=== PATIENT | female | born 1985 | race Caucasian/White ===

== ENCOUNTER → 2018-01-01 16:35 | Outpatient (CLI) | payer OTHER, SELFPAY ==
[2018-01-05 15:42] LABS: HPV Reflexed? NOT INDICATED
== END ==
PROVIDERS: Visit Provider Obstetrics & Gynecology
DX: Z12.4 Encounter for screening for malignant neoplasm of cervix (principal)
CPT/HCPCS: 88175; G0145

== ENCOUNTER → 2018-11-14 09:48 | Outpatient (CLI) | payer OTHER, SELFPAY ==
[2016-01-18 08:25] VITALS: BMI 22.4
[2018-11-14 10:53] LABS: Hemoglobin A1c 5.5 % (4.2-6.3)
[2018-11-14 11:17] LABS: Progesterone Level 0.72 ng/mL (See Comment)
[2018-11-14 11:26] LABS: Free T3 2.9 pg/mL (2.18-3.98); T4 Free Direct 0.82 ng/dL (0.76-1.46); Thyroid Stim Hormone (TSH) 1.43 uIU/mL (0.358-3.74)
[2018-11-14 22:44] LABS: Estradiol 530.9 pg/mL
== END ==
PROVIDERS: Visit Provider Obstetrics & Gynecology
DX: N92.6 Irregular menstruation, unspecified (principal)
CPT/HCPCS: 36415; 82670; 83036; 84144; 84403; 84439; 84443; 84481

== ENCOUNTER → 2018-12-06 13:26 | Outpatient (CLI) | payer OTHER, SELFPAY ==
--- NOTE | 2018-12-06 13:31 | US_ITS ---
STUDY: ULTRASOUND TRANSVAGINAL CLINICAL: Female, 33 years old. Prolonged menses. TECHNIQUE: Transabdominal and Transvaginal COMPARISON: None. FINDINGS: Normal uterine size measuring 8.1 x 5.5 x 4.5 cm in maximal craniocaudal dimension. There are no myometrial masses. Uterus is retroverted. Normal endometrial thickness measuring 6 mm. Endometrial echoes are hyperechoic. There are no endometrial masses, and there is no fluid in the endometrial cavity. Normal uterine cervix. Normal right ovary, measuring 3.2 x 2.8 x 1.8 cm. There are multiple follicles without a dominant cyst. Normal left ovary, measuring 3.0 x 2.9 x 2.1 cm. There are multiple follicles without a dominant cyst. There is no free fluid in the pelvis. Polycystic ovary disease: No. US/Pelvic (Non ) IMPRESSION: Within normal limits. Electronically Signed: Betito Romero MD at 23:14 EST , Service support ,
--- NOTE | 2018-12-06 13:55 | US_ITS ---
STUDY: ULTRASOUND TRANSVAGINAL CLINICAL: Female, 33 years old. Prolonged menses. TECHNIQUE: Transabdominal and Transvaginal COMPARISON: None. FINDINGS: Normal uterine size measuring 8.1 x 5.5 x 4.5 cm in maximal craniocaudal dimension. There are no myometrial masses. Uterus is retroverted. Normal endometrial thickness measuring 6 mm. Endometrial echoes are hyperechoic. There are no endometrial masses, and there is no fluid in the endometrial cavity. Normal uterine cervix. Normal right ovary, measuring 3.2 x 2.8 x 1.8 cm. There are multiple follicles without a dominant cyst. Normal left ovary, measuring 3.0 x 2.9 x 2.1 cm. There are multiple follicles without a dominant cyst. There is no free fluid in the pelvis. Polycystic ovary disease: No. US/Transvaginal Non- IMPRESSION: Within normal limits. Electronically Signed: Betito Romero MD at 23:14 EST , Service support ,
== END ==
PROVIDERS: Family Provider Family Medicine; PCP Family Medicine; Referring Provider Obstetrics & Gynecology; Visit Provider Obstetrics & Gynecology
DX: N92.6 Irregular menstruation, unspecified (principal); N94.3 Premenstrual tension syndrome
CPT/HCPCS: 76830; 76856; 93976

== ENCOUNTER → 2019-02-27 10:55 | Outpatient (CLI) | payer OTHER, SELFPAY ==
[2019-03-01 13:32] LABS: HPV Reflexed? NOT INDICATED
== END ==
PROVIDERS: Visit Provider Obstetrics & Gynecology
DX: Z12.4 Encounter for screening for malignant neoplasm of cervix (principal)
CPT/HCPCS: 88175; G0145

== ENCOUNTER → 2019-03-27 09:41 | Outpatient (CLI) | payer OTHER, SELFPAY ==
[2019-03-27 13:31] LABS: Estradiol 282.7 pg/mL
[2019-03-27 13:37] LABS: Progesterone Level 5.79 ng/mL (See Comment)
== END ==
PROVIDERS: Visit Provider Obstetrics & Gynecology
DX: E28.0 Estrogen excess (principal)
CPT/HCPCS: 36415; 82670; 84144

== ENCOUNTER → 2019-06-15 09:48 | Outpatient (CLI) | payer OTHER, SELFPAY ==
[2019-06-15 11:08] LABS: Cholesterol 242 mg/dL (200); Estradiol 91.6 pg/mL; Follicle Stimulating Hormone 3.1 mIU/mL; Glucose 83 mg/dL (74-106); Hemoglobin A1c 5.4 % (4.2-6.3); High Density Lipoprotein 85 mg/dL; Triglycerides 63 mg/dL; Very Low Density Lipoprotein 13 mg/dL (5-40)
[2019-06-16 07:07] LABS: DHEA Sulfate 260.4 ug/dL (57.3-279.2)
[2019-06-16 07:44] LABS: Sex Hormone-binding Globulin 133.4 nmol/L (24.6-122.0)
[2019-06-17 10:59] LABS: Insulin 3.1 mU/L (2.6-37.6); Progesterone Level 2.47 ng/mL (See Comment); Vitamin D,25 Hydroxy 22.5 ng/mL (29.95-100.01)
== END ==
PROVIDERS: Family Provider Family Medicine; PCP Family Medicine; Referring Provider Obstetrics & Gynecology; Visit Provider Obstetrics & Gynecology
DX: N92.6 Irregular menstruation, unspecified (principal)
CPT/HCPCS: 36415; 80061; 82306; 82533; 82627; 82670; 82947; 83001; 83036; 83525; 84144; 84146; 84270; 84403; 82626

== ENCOUNTER → 2019-09-24 10:38 | Outpatient (CLI) | payer OTHER, SELFPAY ==
[2019-09-24 14:19] LABS: Vitamin D,25 Hydroxy 54.2 ng/mL (29.95-100.01)
== END ==
PROVIDERS: Family Provider Family Medicine; PCP Family Medicine; Referring Provider Obstetrics & Gynecology; Visit Provider Obstetrics & Gynecology
DX: E55.9 Vitamin D deficiency, unspecified (principal)
CPT/HCPCS: 82306

== ENCOUNTER → 2019-12-09 10:18 | Outpatient (CLI) | payer OTHER, SELFPAY ==
[2019-12-09 11:18] LABS: Progesterone Level 9.51 ng/mL (See Comment)
[2019-12-09 11:19] LABS: Estradiol 163.2 pg/mL
[2019-12-11 13:55] LABS: DHEA Sulfate 187.5 ug/dL (57.3-279.2)
== END ==
PROVIDERS: Visit Provider Obstetrics & Gynecology
DX: E28.0 Estrogen excess (principal); N93.8 Other specified abnormal uterine and vaginal bleeding
CPT/HCPCS: 36415; 82533; 82627; 82670; 84144; 84403; 82626

== ENCOUNTER → 2020-05-29 | Outpatient (CLI) | payer OTHER, SELFPAY ==
[2016-01-18 08:25] VITALS: BMI 22.4
[2020-06-04 15:32] LABS: HPV APTIMA, High Risk Negative (Negative)
== END | disposition home or self-care (01) ==
LOC: LABSPEC 15:58
PROVIDERS: Visit Provider Obstetrics & Gynecology
DX: Z12.4 Encounter for screening for malignant neoplasm of cervix (principal)
CPT/HCPCS: 87624; 88175; G0145

== ENCOUNTER → 2023-11-30 | Outpatient (CLI) | payer OTHER, SELFPAY ==
--- OUTSIDE RECORDS SUMMARY | 2023-11-30 16:55 | XMS RPT_ITS | CCD ---
Author Name Unknown Address [address] [place] [address] Organization [facility] Care Team Providers Care Steam Blocker Name Role Phone Ángel Euceda Unavailable [phone] Medications Completed/Discontinued Medications Medication Drug Class(es) Dates Sig (Normalized) Sig (Original) benzonatate 200 mg oral capsule (1 source) Non-narcotic Antitussive Start: 08-07-2017 BENZONATATE 200 MG CAPS 1 capsule 3 times a day as needed for cough BENZONATATE [id number] Ángel HERNANDEZ Problems Problem Classification Problem Date Documented Da te Episodic/Chronic Other upper respiratory infections (1 source) Upper respiratory infection; Translations: [Acute upper respiratory infection, unspecified] Onset: 08-07-2017 08-07-2017 Episodic Results Test Name Value Interpretation Reference Range Facil ity Vital Signs Date Time Vital Sign Value Performing Clinician Yuri badillo 08-07-2017 10:52-0400 BMI (Body Mass Index) 19.89 kg/m2 Ángel HERNANDEZ [facility] Work Phone: 08-07-2017 10:52-0400 Body Temperature 98.4 [degF] Ángel HERNANDEZ [facility] Work Phone: 08-07-2017 10:52-0400 BP Diastolic 66 mm[Hg] Ángel HERNANDEZ [facility] Work Phone: 08-07-2017 10:52-0400 BP Systolic 92 mm[Hg] Ángel HERNANDEZ [facility] Work Phone: 08-07-2017 10:52-0400 Height 164.47 cm Ángel HERNANDEZ [facility] Work Phone: 08-07-2017 10:52-0400 Pulse (Heart Rate) 95 /min Ángel Saleem DAVID [facility] Work Phone: 08-07-2017 10:52-0400 Respiratory Rate 14 /min Ángel Stiven HERNANDEZ [facility] Work Phone: 08-07-2017 [id number] Weight 53.8 kg Ángel Sitven HERNANDEZ [facility] Work Phone: Plan of Treatment Date Care Activity Detail Author Start: 08-07-2017 End: 08-07-2017 Appointment Appointment [facility] Work Phone: Additional Source Comments FOR RECORDS PERTAINING TO PATIENTS WHO ARE OR HAVE BEEN ENROLLED IN A CHEMICAL DEPENDENCY/SUBSTANCEABUSE PROGRAM, SOME INFORMATION MAY BE OMITTED. This clinical summary was aggregated from multiple sources. Caution should be exercised in using it in the provision of clinical care. This summary normalizes information from multiple sources, and as a consequence, information in this document may materially change the coding, format and clinical context of patient data. In addition, data may be omitted in some cases. CLINICAL DECISIONS SHOULD BE BASED ON THE PRIMARY CLINICAL RECORDS. [facility] [employer] [facility]. provides no warranty or guarantee of the accuracy or completeness of information in this document.
[2023-12-06 04:08] LABS: HPV APTIMA, High Risk Negative (Negative)
== END | disposition home or self-care (01) ==
LOC: LABSPEC 16:47
PROVIDERS: PCP Family Medicine; Referring Provider Advanced Practice Midwife; Visit Provider Advanced Practice Midwife
DX: Z12.4 Encounter for screening for malignant neoplasm of cervix (principal)
CPT/HCPCS: 87624; 88175; G0145

== ENCOUNTER → 2023-12-07 | Outpatient (CLI) | payer OTHER, SELFPAY ==
[2023-12-07 10:22] LABS: Absolute Lymphocyte Count 1.85 X10^3/uL (0.83-4.51); Absolute Neutrophil Count 6.1 X10^3/uL (2.0-7.7); Basophil# 0.04 X10^3/uL; Basophil% 0.5 % (0-1); Eosinophils% 1.2 % (0-5); Hematocrit 36.5 % (37-47); Hemoglobin 11.7 g/dL (12.0-15.0); Lymphocyte # 1.85 X10^3/ul (0.83-4.51); Lymphocyte % 21.5 % (19-41); Mean Corp Hgb Conc 32.1 g/dL (32-36); Mean Corpuscular Volume 90.3 fL (81-99); Mean Platelet Vol. 9.9 fl (6.2-12.0); Monocyte# 0.53 X10^3/uL; Monocyte% 6.2 % (0-10); NRBC Flagged by Analyzer 0 % (0-5); Neutrophil # 6.08 X10^3/uL (2.7-7.7); Neutrophil % 70.5 % (47-70); Platelet Count 267 K/mm3 (150-450); RBC Distribution Width CV 12.2 % (11.6-14.6); RBC Distribution Width SD 40.2 fl (35.1-43.9); Red Blood Count 4.04 M/mm3 (4.2-5.4); White Blood Count 8.6 K/mm3 (4.4-11.0)
[2023-12-07 10:54] LABS: Hemoglobin A1c 5.2 % (3.8-5.6)
--- OUTSIDE RECORDS SUMMARY | 2023-12-07 12:00 | XMS RPT_ITS | CCD ---
Author Name Unknown Address [address] [place] [address] Organization [facility] Care Team Providers Care Laboratory Manager Name Role Phone Ángel Euceda Unavailable [phone] Medications Completed/Discontinued Medications Medication Drug Class(es) Dates Sig (Normalized) Sig (Original) benzonatate 200 mg oral capsule (1 source) Non-narcotic Antitussive Start: 08-07-2017 BENZONATATE 200 MG CAPS 1 capsule 3 times a day as needed for cough BENZONATATE [id number] Ángel HERNANDEZ Problems Problem Classification Problem Date Documented Da te Episodic/Chronic Other upper respiratory infections (1 source) Upper respiratory infection; Translations: [Acute upper respiratory infection, unspecified] Onset: 08-07-2017 08-07-2017 Episodic Results Test Name Value Interpretation Reference Range Facil ity Vital Signs Date Time Vital Sign Value Performing Clinician Yuri badillo 08-07-2017 10:52-0400 BMI (Body Mass Index) 19.89 kg/m2 Ángel HERNANDEZ [facility] Work Phone: 08-07-2017 10:52-0400 Body Temperature 98.4 [degF] Ángel HERNANDEZ [facility] Work Phone: 08-07-2017 10:52-0400 BP Diastolic 66 mm[Hg] Ángel HERNANDEZ [facility] Work Phone: 08-07-2017 10:52-0400 BP Systolic 92 mm[Hg] Ángel HERNANDEZ [facility] Work Phone: 08-07-2017 10:52-0400 Height 164.47 cm Ángel HERNANDEZ [facility] Work Phone: 08-07-2017 10:52-0400 Pulse (Heart Rate) 95 /min Ángel Saleem DAVID [facility] Work Phone: 08-07-2017 10:52-0400 Respiratory Rate 14 /min Ángel Stiven HERNANDEZ [facility] Work Phone: [id number] Weight 53.8 kg Ángel Stiven HERNANDEZ [facility] Work Phone: Plan of Treatment Date Care Activity Detail Author Start: 08-07-2017 End: 08-07-2017 Appointment Appointment [facility] Work Phone: Additional Source Comments [...] BE BASED ON THE PRIMARY CLINICAL RECORDS. [facility] [employer] [facility]. provides no warranty or guarantee of the accuracy or completeness of information in this document.
[2023-12-07 13:27] LABS: ALB/GLOB Ratio 1.1 RATIO (0.9-2.4); AST(SGOT) 19 U/L (15-37); Alanine Aminotransfer ALT/SGPT 27 U/L (13-56); Albumin, Serum 3.7 g/dL (3.2-5.0); Alkaline Phosphatase 37 U/L (45-117); Anion Gap 0 (5-15); BUN 18 mg/dL (7-18); BUN/Creat Ratio 29.8 RATIO (10-20); Calcium,Total 8.7 mg/dL (8.5-10.1); Chloride 103 mmol/L (98-107); EST Glomerular Filtration Rate 117 mL/min (>60); Est Glom Filt Rate - Afr Amer 141 mL/min (>60); Follicle Stimulating Hormone 2.3 mIU/mL; Globulin 3.3 g/dL (2.2-4.2); Glucose 88 mg/dL (74-106); Potassium 3.7 mmol/L (3.5-5.1); Sodium Level 133 mmol/L (136-145)
== END | disposition home or self-care (01) ==
LOC: LAB 09:32
PROVIDERS: PCP Family Medicine; Referring Provider Advanced Practice Midwife; Visit Provider Advanced Practice Midwife
DX: Z01.419 Encounter for gynecological examination (general) (routine) without abnormal findings (principal); Z13.29 Encounter for screening for other suspected endocrine disorder
CPT/HCPCS: 36415; 80053; 83001; 83036; 84443; 85025